=== PATIENT | female | born 1985 | race Caucasian/White ===

== ENCOUNTER → 2016-07-22 | Outpatient (CLI) | payer OTHER | END | disposition home or self-care (01) | LOC: M LAB 12:07 | PROVIDERS: ATTEND Advanced Practice Midwife | DX: Z36 Encounter for antenatal screening of mother (principal); Z3A.00 Weeks of gestation of pregnancy not specified ==

== ENCOUNTER → 2016-09-04 | Outpatient (CLI) | payer OTHER ==
--- NOTE | 2016-09-04 12:31 | REP ---
Clinical: Anatomical evaluation. Comparison: 05/24/2016 . Findings: Examination demonstrates a single live intrauterine in variable presentation. motion is identified by technologist. Placenta is noted anteriorly and grade zero without evidence for placenta previa or abruption. Amniotic fluid volume is normal. Cervix measures 5.0 cm in length and appears closed. No evidence for nuchal cord. Gestational age by LMP 19 weeks 0 days with GER[place]IA 01/29/2017 . Gestational age by current measurements 19 weeks 2 days with GERMANIA 01/27/2017 . FHR equals 153 beats per minute. BPD 4.6 cm 19 weeks 5 days HC 16.7 cm 19 weeks 3 days AC 14.1 cm 19 weeks 3 days FL 3.1 cm 19 weeks 3 days HC/AC ratio 1.19 Estimated weight 293 grams ( 64th percentile). Anatomical assessment demonstrates normal structures including cranium, cavum, cerebellum/posterior fossa, facial profile, lungs, diaphragm, stomach, cord insertion/three-vessel cord, kidneys/bladder, spine, and extremities. Facial features and and heart/cardiac ventricular outflow tracts limited in evaluation. Small choroid plexus cysts up to 6 mm noted bilaterally. Impression: Single live intrauterine in variable presentation demonstrating appropriate interval growth. Choroid plexus cysts along with limited evaluation of the facial features and heart/cardiac ventricular outflow tracts warrant reevaluation.
== END ==
LOC: M WHC 10:04
PROVIDERS: ATTEND Obstetrics & Gynecology
DX: Z36 Encounter for antenatal screening of mother (principal)

== ENCOUNTER → 2016-09-23 | Outpatient (CLI) | payer OTHER ==
--- NOTE | 2016-09-24 05:01 | REP ---
Clinical: Anatomical evaluation. Comparison: 09/04/2016 . Findings: Examination demonstrates a single live intrauterine in breech presentation. motion is identified by technologist. Placenta is noted anteriorly and grade zero without evidence for placenta previa or abruption. Amniotic fluid volume is normal. Cervix measures 4.5 cm in length and appears closed. Nuchal cord cannot be excluded. Gestational age by LMP 21 weeks 5 days with [place]ER[place]IA 01/29/2017 . Gestational age by current measurements 21 weeks 6 days with GER[place]IA 01/28/2017 . FHR equals 144 beats per minute. Estimated weight 459 grams ( 52nd percentile). Anatomical assessment demonstrates normal structures including cranium, choroid plexus, cavum, cerebellum/posterior fossa, facial features, lungs, four-chamber heart/ventricular outflow tracts, diaphragm, stomach, cord insertion/three-vessel cord, kidneys/bladder, spine, and upper extremities. Impression: 1. Single live intrauterine in breech presentation demonstrating appropriate interval growth. 2. In conjunction with prior examination anatomical assessment is complete and normal. 3. Nuchal cord cannot be excluded. Signed by Tristan Caputo MD 09/24/2016 04:53 A
== END ==
LOC: M RAD 16:54
PROVIDERS: ATTEND Specialist
DX: O32.1XX0 Maternal care for breech presentation, not applicable or unspecified (principal); Z36 Encounter for antenatal screening of mother; Z3A.21 21 weeks gestation of pregnancy

== ENCOUNTER 2016-10-05 12:46 | Emergency (ER) | payer OTHER ==
[~2016-10-05] VITALS: Ht 167.6 cm; Wt 59.0 kg
[2016-10-05] MEDS ORDERED: CALCTAB75 PO (13:05)
[2016-10-05] MEDS ORDERED: PRENTAB40 PO (13:05)
[2016-10-05] MEDS ORDERED: MECLIZINE 25 MG TABLET PO ONE (13:15)
[2016-10-05] MEDS ORDERED: NS 1,000 ML IV ONE (13:15)
[2016-10-05 13:52] LABS: BASO % 0.2 % (0.0-1.0); EOS % 0.3 % (0.0-3.0); LARGE UNSTAINED CELL # 0.2 K/mm3 (0.0-0.4); LARGE UNSTAINED CELL % 1.5 % (0.0-4.0); LYMPH # 1.4 K/mm3 (1.5-6.5); LYMPH % 12.2 % (24.0-44.0); MEAN CORPUSCULAR HEMOGLOBIN 31.5 pg (27.0-33.0); MEAN CORPUSCULAR HGB CONC 34.7 g/dl (32.0-36.5); MEAN CORPUSCULAR VOLUME 90.8 fl (80.0-96.0); MONO # 0.5 K/mm3 (0.0-0.8); MONO % 4.6 % (0.0-5.0); NEUTROPHILS # 9.4 K/mm3 (1.8-7.7); NEUTROPHILS % 81.1 % (36.0-66.0); PLATELET COUNT, AUTOMATED 215 k/mm3 (150-450); WHITE BLOOD COUNT 11.6 K/mm3 (4.0-10.0)
[2016-10-05 14:10] LABS: ALBUMIN 3.2 GM/DL (3.2-5.2); ALBUMIN/GLOBULIN RATIO 0.97 (1.00-1.93); ALKALINE PHOSPHATASE 45 U/L (45-117); ALT/SGPT 40 U/L (12-78); ANION GAP 9 MEQ/L (8-16); AST/SGOT 26 U/L (15-37); BILIRUBIN,DIRECT < 0.1 MG/DL (0.0-0.2); BILIRUBIN,TOTAL 0.2 MG/DL (0.2-1.0); BLOOD UREA NITROGEN 8 MG/DL (7-18); CALCIUM LEVEL 8.3 MG/DL (8.5-10.1); CARBON DIOXIDE LEVEL 24 MEQ/L (21-32); CHLORIDE LEVEL 105 MEQ/L (98-107); CREATININE FOR GFR 0.48 MG/DL (0.55-1.02); GLOMERULAR FILTRATION RATE > 60.0 (>60); GLUCOSE, FASTING 92 MG/DL (70-105); MAGNESIUM LEVEL 1.9 MG/DL (1.8-2.4); POTASSIUM SERUM 3.2 MEQ/L (3.5-5.1); SODIUM LEVEL 138 MEQ/L (136-145); T UPTAKE 24 % (30-39); THYROXINE (T4) 13.3 UG/DL (4.5-12.0); TOTAL PROTEIN 6.5 GM/DL (6.4-8.2)
[2016-10-05 15:37] LABS: METHADONE URINE NEGATIVE (NEGATIVE)
[2016-10-05] MEDS ORDERED: MECL-68 PO (16:01)
[2016-10-05 16:14] VITALS: BP 117/61
--- NOTE | 2016-10-05 19:51 | ECGEPIP ---
Stationary ECG Study [facility] - ED Test Date: 2016-10-05 Pat Name: MARISSA HARTMANN Department: Room: - Gender: F [employer]: abdirahman : 1985 Requested By: KARI SIFUENTES Order Number: [id number] Reading MD: Ml Stroud Measurements Intervals [place] Rate: 85 P: 66 OR: 130 QRS: 65 QRSD: 94 T: 14 QT: 376 QTc: 449 Interpretive Statements SINUS RHYTHM NONSPECIFIC T-WAVE ABNORMALITY NO PRIOR FOR COMPARISON Electronically Signed On 10-05-2016 19:50:56 EDT by Ml Stroud
== END 2016-10-05 16:46 | disposition home or self-care (01) ==
LOC: EDBD 12:46 → M ED 14:08
DX: O26.892 Other specified pregnancy related conditions, second trimester (principal); R42 Dizziness and giddiness; Z3A.24 24 weeks gestation of pregnancy
CPT/HCPCS: 36415; 80048; 80076; 80306; 81001; 82550; 82553; 83735; 84436; 84443; 84479; 85025; 93005; 93041; 94760; 99285; G0480